=== PATIENT | female | born 1990 | race Two or more races ===

== ENCOUNTER 2024-09-01 18:30 | Emergency (ER) | payer MEDICAID, SELFPAY ==
[2024-09-01 19:43] VITALS: BP 126/81; PULSE 60; RESP 18; TEMP 36.6; O2SAT 99; BMI 27.7
--- NOTE | 2024-09-01 19:48 | PD.EDLOWEX ---
Lower Extremity Injury RME/HPI General Chief Complaint: Extremity Injury, Lower Stated Complaint: LEFT ANKLE PAIN S/P FALLING IN HOLE Time Seen by Provider: 09/01/24 19:04 Source: patient, RN notes reviewed and old records reviewed Arrival date/time: 09/01/24 18:30 Mode of arrival: wheelchair Limitations: no limitations RME / HPI RME / HPI Narrative: 34yof presents to ED for ankle/foot pain s/p injury today. Patient reports she missed a rung coming down a ladder and rolled her left ankle/foot, c/o lateral pain and swelling. No deformity reported. 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 Related Data Home Medications ?Medication ?Instructions ?Recorded ?Confirmed ibuprofen 200 mg tablet (Advil) 200 mg PO Q6H PRN Pain 08/04/21 08/04/21 Previous Rx's ?Medication ?Instructions ?Recorded meloxicam 7.5 mg tablet 7.5 mg PO QDAY #14 tabs 08/04/21 ibuprofen 600 mg tablet 600 mg PO Q6H PRN pain #30 tabs 09/01/24 Allergies Allergy/AdvReac Type Severity Reaction Status Date / Time No Known Allergies Allergy Verified 09/01/24 18:32 Review of Systems Review of Systems Systems Reviewed: All systems reviewed, normal except as documented Musculoskeletal Musculoskeletal: Reports arthralgias, Denies deformity, Reports joint swelling, Reports limited range of motion, Denies numbness and Denies tingling Neurologic Neurologic: Denies numbness and Denies tingling Past Medical History Surgical History OTHER SURGICAL HX: Ovarian cystectomy Social History SMOKING STATUS: Never smoker SUBSTANCE USE: does not use ALCOHOL: Never Past Medical History Comments PMH COMMENT: denies pmhx ED Exam General Limitations: Present no limitations General appearance: Present alert and in no apparent distress Head Head exam: Present atraumatic and normocephalic Eye Eye exam: Present normal appearance, PERRL and EOMI ENT ENT exam: Present normal exam and mucous membranes moist Neck Neck exam: Present normal inspection and full ROM Chest Chest inspection: Present normal inspection and symmetric chest wall rise Respiratory Respiratory exam: Present normal lung sounds bilaterally; Absent respiratory distress Cardiovascular Cardiovascular exam: Present regular rate and normal rhythm Extremities Exam Extremities exam: Present other (Mild tenderness to lateral aspect of left ankle/foot. Limited ROM 2/2 pain. 2+ pedal pulses, sensation intact) Neurological Exam Neurological exam: Present alert and oriented X3 Psychiatric Psychiatric exam: Present normal affect and normal mood Skin Skin exam: Present warm, dry, intact and normal color Course Quality Measures none Orders Category Date Time Status Crutches .NOW Care 09/01/24 21:35 Completed Splint / Immobilizer STAT Care 09/01/24 21:35 Completed XR ankle comp LT min 3V Stat Exams 09/01/24 19:49 Completed XR foot comp LT min 3V Stat Exams 09/01/24 19:49 Completed Acetaminophen Tab [Tylenol ES Tab] Med 09/01/24 19:49 Discontinued 1,000 mg PO X1 ONE Ibuprofen Tab [Motrin Tab] Med 09/01/24 19:49 Discontinued 600 mg PO X1 ONE Vital Signs Vital signs: Vital Signs Temperature 97.8 F 09/01/24 19:43 Pulse Rate 60 09/01/24 19:43 Respiratory Rate 18 09/01/24 19:43 Blood Pressure 126/81 09/01/24 19:43 Pulse Oximetry (%) 99 09/01/24 19:43 Oxygen Delivery Method Room Air 09/01/24 19:43 Procedures -ED Splint Fabrication: Pre-Fabricated Type: Ankle Stirrup Reason for Splint: Improve Function, Optimal Positioning, Pain Management, Prevent Deformities and Support Joint/Muscle Circulation Distal to Splint: Yes Movement Distal to Splint: Yes Senation Distal to Splint: Yes Tolerance: Tolerates Well Extremity Injury, Lower MDM Narrative MDM Narrative:: 34yof presents to ED for ankle/foot pain s/p injury today. Patient reports she missed a rung coming down a ladder and rolled her left ankle/foot, c/o lateral pain and swelling. No deformity reported. 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 Patient is neurovascularly intact. Encouraged RICE therapy, Motrin/Tylenol prn pain. Ortho follow-up as needed. Stable for discharge, RTED precautions given. Patient data External records reviewed:: [facility] previous records (08/04/2021 ED visit for ovarian cyst) Clinical information provided by:: patient Social determinants that could affect healthcare access:: other (specify) (Poor access to healthcare, acculturation difficulty) Patient has the following chronic illnesses:: None How is presenting disease/condition affected by chronic disease/condition?: no chronic disease Evaluation data The following diagnostics were reviewed and interpreted by me:: radiology exam(s) Lab and/or radiology exams considered but not ordered:: None Interpretation Summary: Ankle x-rays: No fracture per my read Foot x-rays: No fracture per my read Medications / Prescriptions Medications or Prescriptions considered but not ordered:: None Medication administrations:: Medication Administration History Discontinued Medications Acetaminophen (Acetaminophen 500 Mg Tablet) 1,000 mg PO X1 ONE Stop: 09/01/24 19:50 Last Admin: 09/01/24 20:00 Dose: 1,000 mg Documented By: COLE Ibuprofen (Ibuprofen Tab 600 Mg Tablet) 600 mg PO X1 ONE Stop: 09/01/24 19:50 Last Admin: 09/01/24 20:27 Dose: 600 mg Documented By: GILES Above medications administered in ED Consultations Consultation(s) initiated? (list below): No Diagnosis Extremity Injury, Lower Differential Diagnosis: other (Fracture, dislocation, sprain, strain, contusion, MSK pain) Most likely diagnosis given after review of the tests above:: Ankle/foot sprain Admission Indicated Admission indicated?: not indicated Admission Request Was there a request for admission?: No Disposition Plan Disposition Plan: Discharge Discharge Attestation Discharge Attestation: The patient and all family members were given an opportunity to ask questions and understood the discharge instructions. Discharge instructions specifically effects, indications for sooner follow up or return to the emergency department, and the expected course of current diagnosis. Patient condition: Stable Discharge Plan Plan Patient Disposition: HOME (Self Care) Patient condition on transfer: Stable Prescriptions/Referrals Prescriptions/Med Rec: New ibuprofen 600 mg tablet 600 mg PO Q6H PRN (Reason: pain) Qty: 30 0RF No Action ibuprofen [Advil] 200 mg Tablet 200 mg PO Q6H PRN (Reason: Pain) meloxicam 7.5 mg tablet 7.5 mg PO QDAY Qty: 14 0RF Referrals: No Primary/Family,Physician [Primary Care Provider] - In 1 week Mumtaz Camp MD [Physician] - (Call to schedule an appointment as needed) Problem List Clinical Impression: Left ankle sprain, Foot pain, left Patient/Caregiver Discharge Instructions Education Materials: ED Ankle Sprain (Adult) Additional Instructions: Alternate ibuprofen and Tylenol every 4-6 hours as needed for pain. Ice application can help with swelling. Print Language: Cymro Stand Alone Forms: Theresa Award Info., Patient Portal Info Letter PA/SPECIAL EDUCATION TUTOR Supervising Physician PA/SPECIAL EDUCATION TUTOR Supervising Physician: Siomara
--- NOTE | 2024-09-01 19:49 | XR_ITS ---
Examination: Foot, left, 3 views Technique: AP, oblique, lateral views foot, 3 views Date and time of exam: September 01, 2024 at 1901 hours INDICATIONS: Injury to the foot today, foot pain FINDINGS: No acute fracture. No dislocation. No foreign body IMPRESSION: No acute fracture
--- NOTE | 2024-09-01 19:49 | XR_ITS ---
EXAMINATION: Ankle, left 3 views . Technique: Ankle AP, oblique, lateral 3 views Date and time of exam: September 01, 2024, 1907 hours INDICATIONS: Injured ankle today, ankle pain. FINDINGS: No acute fracture. No Chadd dislocation IMPRESSION: No acute fracture
[2024-09-01] MEDS: ACETAMINOPHEN 500 MG TABLET 1000 MG PO (20:00)
[2024-09-01] MEDS: IBUPROFEN TAB 600 MG TABLET PO (20:27)
== END 2024-09-01 21:53 | disposition home or self-care (01) ==
PROVIDERS: Emergency Provider Emergency Medicine
DX: S93.402A Sprain of unspecified ligament of left ankle, initial encounter (principal); S99.922A Unspecified injury of left foot, initial encounter; X50.1XXA Overexertion from prolonged static or awkward postures, initial encounter
CPT/HCPCS: 29515; 73610; 73630; 99283; A9270